=== PATIENT | female | born 1975 | race Caucasian/White ===

== ENCOUNTER 2020-06-15 10:52 | Outpatient (CLI) | payer OTHER, SELFPAY ==
--- NOTE | 2020-06-15 11:31 | MR_ITS ---
WS: [id number] MRI CERVICAL SPINE NONCONTRAST TECHNIQUE: Sagittal T1, T2 and STIR imaging. Axial T2, gradient, and fiesta imaging. CLINICAL INFORMATION: NECK PAIN - LT CERVICAL RADICULOPATHY COMPARISON: None. FINDINGS: Straightening of the normal cervical lordosis. Disc bulging worse at C5-C6. Cord signal is normal. C2-C3: Normal. C3-C4: Tiny central protrusion. Spinal canal and foramen are patent. Mild facet arthropathy. C4-C5: Minimal disc bulging. Tiny shallow central protrusion. Mild facet arthropathy. Spinal canal an d foramen are patent. C5-C6: Broad-based central disc protrusion with slight contact of the cervical cord. Mild central can al stenosis. Mild left and no significant right foraminal narrowing. Mild facet arthropathy. C6-C7: Normal. C7-T1: Normal. Multinodular thyroid with lobulated thyroid nodules. Largest measures 1.8 x 1.4 cm. This can be follo wed up with ultrasound. MR/MR cervical spin wo con* [id number] IMPRESSION: 1. Straightening of the normal cervical lordosis. Cord signal is normal. 2. Mild disc osteophyte complex C5-C6 with mild central canal stenosis and sli ght contact of the cervical cord. Mild left foraminal narrowing at this level. 3. Tiny shallow central protrusions C3-C4 and C4-C5 without significant spinal canal narrowing. 4. Mild facet arthropathy C4-C5 and C5-C6. 5. Multinodular thyroid with dominant right-sided nodule measuring 1.8 x 1.4 c m. Recommend further evaluation with ultrasound.
== END 2020-06-15 10:53 | disposition home or self-care (01) ==
LOC: RADWPI 11:01
PROVIDERS: Visit Provider Emergency Medicine
DX: M54.12 Radiculopathy, cervical region (principal); M25.78 Osteophyte, vertebrae; M50.222 Other cervical disc displacement at C5-C6 level; M47.812 Spondylosis without myelopathy or radiculopathy, cervical region; E04.2 Nontoxic multinodular goiter
CPT/HCPCS: 72141

== ENCOUNTER → 2020-07-07 10:38 | Outpatient (BNVA) | payer BC, SELFPAY | PROVIDERS: Referring Provider Emergency Medicine; Visit Provider Anesthesiology Pain Medicine | DX: M25.512 Pain in left shoulder (principal); M79.602 Pain in left arm; M50.00 Cervical disc disorder with myelopathy, unspecified cervical region; M54.12 Radiculopathy, cervical region; M47.812 Spondylosis without myelopathy or radiculopathy, cervical region; Z79.891 Long term (current) use of opiate analgesic | CPT/HCPCS: 99204 ==

== ENCOUNTER → 2020-08-04 12:47 | Outpatient (BNVA) | payer OTHER, SELFPAY | PROVIDERS: Visit Provider Anesthesiology Pain Medicine | DX: M50.00 Cervical disc disorder with myelopathy, unspecified cervical region (principal); M54.12 Radiculopathy, cervical region; M47.812 Spondylosis without myelopathy or radiculopathy, cervical region; Z79.891 Long term (current) use of opiate analgesic | CPT/HCPCS: 99213 ==

== ENCOUNTER → 2020-09-23 09:00 | Outpatient (BNVA) | payer BC, SELFPAY | PROVIDERS: PCP Electrodiagnostic Medicine; Visit Provider Anesthesiology Pain Medicine | DX: M50.00 Cervical disc disorder with myelopathy, unspecified cervical region (principal); M54.12 Radiculopathy, cervical region; M47.812 Spondylosis without myelopathy or radiculopathy, cervical region; M25.512 Pain in left shoulder; M79.602 Pain in left arm | CPT/HCPCS: 99214 ==

== ENCOUNTER → 2020-10-04 14:07 | Outpatient (BNVA) | payer BC, SELFPAY | PROVIDERS: PCP Electrodiagnostic Medicine; Visit Provider Anesthesiology Pain Medicine | DX: M54.12 Radiculopathy, cervical region (principal) | CPT/HCPCS: 62321; J1100 ==

== ENCOUNTER → 2020-10-19 09:07 | Outpatient (BNVA) | payer OTHER, SELFPAY | PROVIDERS: PCP Electrodiagnostic Medicine; Visit Provider Anesthesiology Pain Medicine | DX: M79.602 Pain in left arm (principal); M50.00 Cervical disc disorder with myelopathy, unspecified cervical region; M54.12 Radiculopathy, cervical region; M47.812 Spondylosis without myelopathy or radiculopathy, cervical region; R11.2 Nausea with vomiting, unspecified | CPT/HCPCS: 99213 ==

== ENCOUNTER 2021-06-21 12:06 | Outpatient (CLI) | payer OTHER, SELFPAY ==
--- NOTE | 2021-06-21 12:18 | XR_ITS ---
WS: [id number] LEFT ELBOW: 3 VIEW(S) TECHNIQUE: AP, oblique and lateral. HISTORY: L ELBOW PAIN/L FOREARM PAIN COMPARISON: None available. Although not displaced findings are highly suspicious for radial neck fracture. The anterior humeral line is normal. There is a moderate-sized joint effusion. Significant distention of the anterior capsule. Additional soft tissue swelling and edema around the elbow. XR/XR elbow LT min 3V* [id number] IMPRESSION: Highly suspicious for nondisplaced radial neck fracture. Moderate-sized joint effusion.
--- NOTE | 2021-06-21 12:18 | XR_ITS ---
WS: [id number] LEFT WRIST: 3 VIEW(S) TECHNIQUE: PA, oblique and lateral. HISTORY: LEFT FOREARM PAIN/L ELBOW PAIN COMPARISON: None available. No acute fracture or dislocation. No joint space abnormality. No soft tissue swelling. XR/XR wrist LT min 3V* [id number] IMPRESSION: Negative LEFT wrist.
== END 2021-06-21 12:07 | disposition home or self-care (01) ==
LOC: RAD 12:12
PROVIDERS: PCP Electrodiagnostic Medicine; Visit Provider Electrodiagnostic Medicine
DX: M79.632 Pain in left forearm (principal); M25.522 Pain in left elbow; M25.422 Effusion, left elbow
CPT/HCPCS: 73080; 73110

== ENCOUNTER → 2025-04-16 14:15 | Outpatient (BNVA) | payer BC, SELFPAY | PROVIDERS: PCP Electrodiagnostic Medicine; Visit Provider Nurse Practitioner Women's Health | DX: F51.04 Psychophysiologic insomnia (principal); R63.5 Abnormal weight gain; R68.82 Decreased libido | CPT/HCPCS: 82306; 82607; 82670; 83525; 84270; 84402; 84403 ==